=== PATIENT | male | born 1965 | race Hispanic/Latino ===

== ENCOUNTER 2017-11-19 06:38 | Observation (INO) | payer BC ==
[2017-11-16 11:09] LABS: Basophils # (Auto) 0.1 K/mm3 (0.0-0.1); Basophils % (Auto) 1.2 % (0.0-1.8); Eosinophils # (Auto) 0.2 K/mm3 (0.0-0.4); Eosinophils % (Auto) 1.9 % (0.0-4.3); Hematocrit 44.4 % (35.5-45.6); Lymphocytes # (Auto) 2.9 K/mm3 (1.2-5.4); Lymphocytes % (Auto) 28.5 % (13.4-35.0); Mean Corpuscular HGB Conc 34 % (32-34); Mean Corpuscular Hemoglobin 31 pg (28-32); Mean Corpuscular Volume 92 fl (84-94); Monocytes # (Auto) 0.6 K/mm3 (0.0-0.8); Platelet Count 329 K/mm3 (140-440); Red Blood Count 4.81 M/mm3 (3.65-5.03); Red Cell Distribution Width 14.4 % (13.2-15.2)
[2017-11-16 11:20] LABS: INR 0.88 (0.87-1.13)
[2017-11-16 11:21] LABS: Partial Thromboplastin Time 28.7 Sec. (24.2-36.6)
[2017-11-16 11:32] LABS: Alanine Aminotransferase 16 units/L (7-56); Albumin 4.2 g/dL (3.9-5); BUN/Creatinine Ratio 20; Blood Urea Nitrogen 14 mg/dL (9-20); Calcium 9.7 mg/dL (8.4-10.2); Hemolysis Index 15
--- NOTE | 2017-11-16 11:46 | Anesthesia Consultation ---
Anesthesia Consult and Med Hx Date of service: 11/16/17 - Airway Anesthetic Teeth Evaluation: Poor (some missing teeth) ROM Head & Neck: Adequate Mental/Hyoid Distance: Adequate Mallampati Class: Class II Intubation Access Assessment: Possibly Difficult - Pulmonary Exam CTA: Yes - Cardiac Exam Cardiac Exam: RRR (patient had abnormal EKG - poss infarct from [place] - pt saw certified nuclear medicine technologist this year was told looked good - no evidence of heart problems ) - Pre-Operative Health Status ASA Pre-Surgery Classification: ASA3 Proposed Anesthetic Plan: General (pt no problems with anesthesia; no pain relief from morphine - doctor did test that said no receptors for morphine) - Pulmonary Hx Smoking: Yes (1/2 PPD X 37 YRS) COPD: Yes (NO INHALERS AT PRESENT) Hx Sleep Apnea: Yes (DX SLEEP APNEA WITH CPAP USE) - Cardiovascular System Hx Hypertension: Yes (takes lisinopril; high cholesterol) - Central Nervous System Hx Neuromuscular Disorder: Yes (right rotator cuff surgery - patient will need arm down at side ) Hx Seizures: No (gout) Hx Back Pain: Yes (WITH TINGLING FEET AND LEGS) Hx Psychiatric Problems: Yes (anxiety and depression) - Other Systems Hx Cancer: No
[2017-11-19] MEDS: CLEOCIN PO SCH ×2 (02:00→18:24)
[~2017-11-19 06:38] MED LIST: ADRENALIN IV ONE; ANCEF/STERILE WATER 2 GM/20 ML IV NR; ANTIBIOTIC OINT TP ONE; BACITRACIN IR ONE; MARCAINE 0.5% INFILTRATI ONE; XYLOCAINE 1% 20 mL INFILTRATI ONE
[2017-11-19] MEDS ORDERED: NACL 0.9% 1000 ML 1,000 ML IV SCH (07:00)
[2017-11-19] MEDS ORDERED: VERSED IV NR (07:00)
[2017-11-19] MEDS ORDERED: DILAUDID IV PRN ×3 (07:59→09:00)
[2017-11-19] MEDS ORDERED: PEPCID PO NR (08:00)
[2017-11-19] MEDS ORDERED: SUBLIMAZE ONE (08:11)
[2017-11-19] MEDS ORDERED: DIPRIVAN 10 MG/ML IV ONE (08:11)
[2017-11-19] MEDS ORDERED: TORADOL ONE (08:12)
[2017-11-19] MEDS ORDERED: QUELICIN ONE (08:22)
[2017-11-19] MEDS ORDERED: XYLOCAINE MPF 2% ONE (08:23)
[2017-11-19] MEDS: DILAUDID IV PRN ×3 (08:32→22:30)
[2017-11-19] MEDS ORDERED: MARCAINE 0.5% 30 ML INFILTRATI ONE (08:48)
[2017-11-19] MEDS ORDERED: BACITRACIN ONE (08:48)
[2017-11-19] MEDS ORDERED: GELFOAM TP ONE (08:49)
[2017-11-19] MEDS ORDERED: XYLOCAINE 0.5%/ EPI 1:200,000 INFILTRATI ONE (08:49)
[2017-11-19] MEDS ORDERED: NACL 0.9% 500 ML 500 ML ONE (08:49)
[2017-11-19] MEDS ORDERED: THROMBIN (BOVINE) TP ONE (08:49)
[2017-11-19] MEDS ORDERED: NACL ONE (08:50)
[2017-11-19] MEDS ORDERED: DILAUDID ONE (08:56)
[2017-11-19] MEDS ORDERED: CLEOCIN 900 MG/50 mL 900 MG/50 ML BAG IV ONE (09:05)
--- NOTE | 2017-11-19 09:11 | Short Stay Summary ---
Short Stay Documentation Date of service: 11/19/17 Narrative H&P: Patient is a 52-year-old male with history of chronic bilateral low back pain and leg pain. He underwent anterior lumbar interbody fusion L5-S1 at L5-S1 on 12/23/2015. Postoperatively he has had ongoing low back pain and bilateral leg pain. He is undergone physical therapy, medical management and multiple interventional pain management procedures without significant improvement in his pain. He is on moderately high-dose opioid medications. He underwent a neurostimulator trial with Nevro on 09/13/2017 with greater than 75% improvement in his low back and leg pain. He is able to significantly decrease his opioid intake in addition. Given the results of that trial and recommendation of a neuropsych evaluation he is felt to be an excellent candidate for neuromodulation therapy. He presents today for permanent implantation. - History Principal diagnosis: Postlaminectomy syndrome H&P: obtained from office Past Medical History: COPD, hypertension (Anterior lumbar interbody fusion at L5 -S1, right rotator cuff repair.), other (Gout) Social history: (Unemployed due to chronic back pain and right shoulder surgery.), smoking - Allergies and Medications Current Medications: Allergies Penicillins Allergy (Verified 11/09/17 12:18) Unknown PT STATES FAMILY HX OF SEVERE REACTION TO PCN- REQUEST NOT TO HAVE IT. temazepam Allergy (Verified 11/09/17 12:18) Itching Home Medications Medication Instructions Recorded Confirmed Last Taken Type Allopurinol 300 mg PO DAILY 11/09/17 11/19/17 11/17/17 09:00 History Aspirin [Aspirin TAB] 325 mg PO QDAY 11/09/17 11/19/17 11/05/17 09:00 History AtorvaSTATin [Lipitor] 20 mg PO QHS 11/09/17 11/19/17 11/18/17 21:00 History Duloxetine HCl [Cymbalta] 60 mg PO DAILY 11/09/17 11/19/17 11/18/17 09:00 History Gabapentin [Neurontin] 200 mg PO TID 11/09/17 11/19/17 11/18/17 09:00 History Hydromorphone HCl [HYDROmorphone 12 mg PO DAILY 11/09/17 11/19/17 11/18/17 09: 00 History ER] Indomethacin [Indocin] 50 mg PO PRN PRN 11/09/17 11/16/17 Unknown History Lisinopril [Zestril] 20 mg PO DAILY 11/09/17 11/19/17 11/18/17 09:00 History Varenicline Tartrate [Chantix] 1 mg PO BID 11/09/17 11/19/17 11/18/17 09:00 History Zolpidem [Ambien] 10 mg PO QHS PRN 11/09/17 11/19/17 11/18/17 21:00 History clonazePAM [Klonopin] 1 mg PO BID 11/09/17 11/19/17 11/18/17 21:00 History oxyCODONE ER [OxyCONTIN ER TAB] 10 mg PO TID 11/09/17 11/19/17 11/18/17 09:00 History Varenicline Tartrate [Chantix] 1 mg PO BID 11/16/17 11/19/17 11/18/17 09:00 History Active Medications Cefazolin Sodium (Ancef/Sterile Water 2 Gm/20 Ml) 2 gm IV PREOP NR Stop: 11/19/17 23:59 Famotidine (Pepcid) 20 mg PO PREOP NR Stop: 11/19/17 19:00 Last Admin: 11/19/17 08:32 Dose: 20 mg Hydromorphone HCl (Dilaudid) 0.5 mg IV PRN PRN PRN Reason: pain Last Admin: 11/19/17 08:32 Dose: 0.5 mg Hydromorphone HCl (Dilaudid) 0.5 mg IV Q10MIN PRN PRN Reason: Pain , Severe (7-10) Stop: 11/19/17 17:00 Sodium Chloride (Nacl 0.9% 1000 Ml) 1,000 mls @ 125 mls/hr IV DIRECT MARLA Stop: 11/19/17 23:59 Last Admin: 11/19/17 08:05 Dose: 125 mls/hr Clindamycin HCl (Cleocin 900 Mg/50 Ml) 900 mg in 50 mls @ 100 mls/hr IV Q8H MARLA PRN Reason: Protocol Midazolam HCl (Versed) 2 mg IV PREOP NR Stop: 11/19/17 23:59 Last Admin: 11/19/17 08:59 Dose: 2 mg - Physical exam General appearance: no acute distress Integumentary: no rash HEENT: Atraumatic, PERRLA, EOMI, Mucous membr. moist/pink Lungs: Clear to auscultation Breasts: deferred Heart: Regular rate, No murmurs Gastrointestinal: normal Male Genitourinary: deferred Rectal Exam: deferred Extremities: no ischemia, abnormal (Right shoulder and shoulder immobilizer secondary to recent rotator cuff repair.) Neurological: Normal gait, Normal speech, Strength at 5/5 X4 ext, Cranial nerves 3-12 NL - Brief post op/procedure progress note Date of procedure: 11/19/17 Pre-op diagnosis: Post Laminectomy Syndrome Post-op diagnosis: same Procedure: Permanent neurostimulator implantation with a dual epidural leads- Thoracic Spine Anesthesia: GETA Findings: Left epidural lead cephalad contact position at superior endplate of T8. Right epidural lead cephalad contact position at superior endplate of T9 Surgeon: ELOISE AGUIRRE Estimated blood loss: minimal Pathology: none Condition: stable - Disposition Condition at discharge: Good Disposition: DC-01 TO HOME OR SELFCARE Short Stay Discharge Plan Follow up with: MINDY ALVAREZ [Other] - 7 Days
[2017-11-19] MEDS ORDERED: ADRENALIN ONE (09:22)
[2017-11-19] MEDS ORDERED: XYLOCAINE 1% 20 mL ONE (09:22)
[2017-11-19] MEDS ORDERED: PROAIR IH ONE (09:29)
[2017-11-19] MEDS ORDERED: CLEOCIN 900 MG/50 mL 900 MG/50 ML BAG IV SCH (09:30)
[2017-11-19] MEDS ORDERED: ZEMURON IV ONE (09:48)
[2017-11-19] MEDS ORDERED: NEO SYNEPHRINE ONE (09:48)
[2017-11-19] MEDS ORDERED: NEO SYNEPHRINE/NS Syringe(OR USE) IV ONE (09:48)
[2017-11-19] MEDS ORDERED: ROBINUL ONE ×3 (09:50→11:14)
[2017-11-19] MEDS ORDERED: ZOFRAN ONE (10:17)
[2017-11-19] MEDS ORDERED: DECADRON ONE (10:17)
[2017-11-19] MEDS ORDERED: NACL 0.9% 1000 ML 1,000 ML ONE (10:21)
[2017-11-19] MEDS ORDERED: ANTIBIOTIC OINT TP ONE (11:04)
[2017-11-19] MEDS ORDERED: NEOSTIGMINE ONE (11:13)
--- NOTE | 2017-11-19 11:44 | XRay Report ---
Thoracic spine, 2 views History: Back pain, finish sander for dorsal spinal stimulator placement Findings: PA and lateral fluoroscopic views of the thoracolumbar spine were obtained during dorsal spinal stimulator placement. Minimal spondylosis is noted. No evidence for fracture, malalignment or bone lesion. A neurostimulator device terminates near the level of T8-9. Impression: Mild spondylosis. Stimulator placement as described.
--- NOTE | 2017-11-19 13:23 | Operative Report ---
Operative Report Operative Report: Preoperative Diagnoses: 1. Chronic axial low back pain. 2. Bilateral Lumbar radiculopathy. 3. Degenerative disc disease the lumbar spine. 4. Postlaminectomy syndrome. Postoperative diagnosis: 1. Same. Procedure: 1. Percutaneous insertion of dual octapolar epidural leads -thoracic spine. 2. Implantation of pulse generator/anesthesiologist and critical care. Surgeon: Syed Stuart Anesthesia: General endotracheal. Estimated blood loss: 15 mL Complications: None. Indication: The patient is a 52-year-old male with chronic low back and bilateral leg pain.. History of anterior lumbar interbody fusion at L5-S1 on . He has undergone extensive conservative management and interventional pain management. including chronic opioid therapy. He was evaluated by orthopedic spine surgery and was determined to no longer be a surgical candidate.. He underwent neurostimulator trial in August 2017 with greater than 75% pain relief and reduction in opioid intake. Based on the success of the trial, sandra reinoso was felt to be an excellent candidate for neurostimulator implantation. Patient underwent psychological evaluation and no contraindication was identified. He now presents for permanent implantation. Procedure: Upon informed consent, the patient was brought to the operative suite and general endotracheal anesthesia was induced. The patient was then carefully turned onto the operative table in the prone position. All pressure points were meticulously padded. He received 100 mg of clindamycin intravenously for antibiotic prophylaxis. The back was sterilely prepped and draped in routine fashion. Attention was initially turned to the thoracolumbar junction. Using a 14-gauge Tuohy needle, the needle was advanced to the interlaminar space on the left at T12-L1. The epidural space was entered using [id number] technique. Aspiration was negative for blood and CSF. Guidewire was easily passed into the dorsal epidural space. This was followed by placement of a 70 cm octapolar lead ([id number], Lot [id number]) which was guided using fluoroscopic assistance into the lower thoracic space to the left of midline with the superior contact overlying the T7-8 disc space. Using parallel technique, the second epidural lead was advanced into the posterior epidural space at T12-L1 and a second 70 cm octapolar lead ([id number] [id number], Lot [id number]), and advanced to the T8-9 disc space, to the right of midline. Once placement was deemed to be satisfactory in both AP and lateral projections , a 5 cm paramedian skin incision was made with a #15 blade after installation of 0.5% bupivacaine. Using sharp and blunt dissection was electrocautery, the dorsal lumbar fascia was identified. The fat tissue connective tissue was stripped off the dorsal fascia. The Tuohy needles were removed and Titanium anchors were used to anchor the leads to the dorsal epidural fascia with 2-0 silk sutures. The leads were locked into the anchors and the leads appear to be secure. Lead position was again confirmed with fluoroscopy. The incision was irrigated with bacitracin-containing solution. Second 5 cm incision was made a #15 blade over the left flank, superior to the iliac crest. Using sharp and blunt dissection, a pocket was created within the subcutaneous fat. Hemostasis was achieved with electrocautery. The pocket was irrigated in no active bleeding was identified. The tunneling device was then inserted and the leads were passed from the paramedian incision to the pocket and connected to the IPG ([id number]). Impedance was found to be satisfactory. The pulse generator was then placed into the pocket satisfactory fit. The wound was again irrigated with antibiotic containing solution. Both incisions were closed in 3 layers with deep 2-0 Vicryl interrupted sutures, subcutaneous 3-0 Vicryl interrupted sutures and skin edges were approximated with stainless steel chantelle. Sterile dressings were applied. Patient was then turned onto the gurney in the supine position and extubated. He was taken to the recovery room where she was noted to be in stable cardiopulmonary neurologic condition. Disposition: Patient was discharged to home in good condition. Follow up with home health care. Prescription was given for clindamycin 300 mg 3 times a day for 4 days. Follow-up: Return to clinic in one week for follow-up evaluation.
--- NOTE | 2017-11-19 13:54 | Post Anesthesia Evaluation ---
- Post Anesthesia Evaluation Patient Participated: Yes Airway Patent: Yes Stable Respiratory Function: Yes Nausea/Vomiting: No Temp > 96.8F: Yes Pain Manageable: Yes Adequeate Hydration: Yes Anesthesia Complications: No Block Receding Appropriately: Not Applicable Patient on Ventilator: No
--- NOTE | 2017-11-19 21:08 | History and Physical Report ---
History of Present Illness Date of examination: 11/19/17 Date of admission: 11/19/17 15:45 Chief complaint: SOB Postop History of present illness: [place]: Patient acutely SOB post procedure and Hypoxic -hence admission from PACU. Patient had Neuro stimulator placed today.Postop was hypoxic and SOB. From the surgeon-Dr Madrigal "Patient is a 52-year-old male with history of chronic bilateral low back pain and leg pain. He underwent anterior lumbar interbody fusion L5-S1 at L5-S1 on 12/23/2015. Postoperatively he has had ongoing low back pain and bilateral leg pain. He is undergone physical therapy, medical management and multiple interventional pain management procedures without significant improvement in his pain. He is on moderately high-dose opioid medications. He underwent a neurostimulator trial with Zbigniewro on 09/13/2017 with greater than 75% improvement in his low back and leg pain. He is able to significantly decrease his opioid intake in addition. Given the results of that trial and recommendation of a neuropsych evaluation he is felt to be an excellent candidate for neuromodulation therapy. He presents today for permanent implantation." Past History Past Medical History: COPD, hypertension (Anterior lumbar interbody fusion at L5 -S1, right rotator cuff repair.), other (Gout) Past Surgical History: Other (Neuro stimulator placed today Rt Shoulder surgery) Social history: (Unemployed due to chronic back pain and right shoulder surgery.), smoking Medications and Allergies Allergies Allergy/AdvReac Type Severity Reaction Status Date / Time Penicillins Allergy Unknown Verified 11/09/17 12:18 temazepam Allergy Itching Verified 11/09/17 12:18 Home Medications Medication Instructions Recorded Confirmed Last Taken Type Allopurinol 300 mg PO DAILY 11/09/17 11/19/17 11/17/17 09:00 History Aspirin [Aspirin TAB] 325 mg PO QDAY 11/09/17 11/19/17 11/05/17 09:00 History AtorvaSTATin [Lipitor] 20 mg PO QHS 11/09/17 11/19/17 11/18/17 21:00 History Duloxetine HCl [Cymbalta] 60 mg PO DAILY 11/09/17 11/19/17 11/18/17 09:00 History Gabapentin [Neurontin] 200 mg PO TID 11/09/17 11/19/17 11/18/17 09:00 History Hydromorphone HCl [HYDROmorphone mg PO DAILY 11/09/17 11/19/17 11/18/17 09: 00 History ER] Lisinopril [Zestril] 20 mg PO DAILY 11/09/17 11/19/17 11/18/17 09:00 History Varenicline Tartrate [Chantix] 1 mg PO BID 11/09/17 11/19/17 11/18/17 09:00 History Zolpidem [Ambien] 10 mg PO QHS PRN 11/09/17 11/19/17 11/18/17 21:00 History clonazePAM [Klonopin] 1 mg PO BID 11/09/17 11/19/17 11/18/17 21:00 History oxyCODONE ER [OxyCONTIN ER TAB] 10 mg PO TID 11/09/17 11/19/17 11/18/17 09:00 History Varenicline Tartrate [Chantix] 1 mg PO BID 11/16/17 11/19/17 11/18/17 09:00 History Famotidine [Pepcid] 20 mg PO PREOP tablet 11/19/17 Unknown Rx Active Meds: Active Medications Clindamycin HCl (Cleocin) 300 mg PO Q8HR MARLA Last Admin: 11/19/17 18:24 Dose: 300 mg Hydromorphone HCl (Dilaudid) 0.5 mg IV PRN PRN PRN Reason: pain Last Admin: 11/19/17 18:16 Dose: 0.5 mg Sodium Chloride (Nacl 0.9% 1000 Ml) 1,000 mls @ 125 mls/hr IV DIRECT MARLA Stop: 11/19/17 23:59 Last Admin: 11/19/17 08:05 Dose: 125 mls/hr Midazolam HCl (Versed) 2 mg IV PREOP NR Stop: 11/19/17 23:59 Last Admin: 11/19/17 08:59 Dose: 2 mg Review of Systems All systems: negative Respiratory: cough with sputum, shortness of breath, congestion, wheezing Exam - Constitutional Vitals: Temp Pulse Resp BP Pulse Ox 97.8 F 85 19 139/78 98 11/19/17 19:33 11/19/17 19:33 11/19/17 19:33 11/19/17 19:33 11/19/17 19:33 General appearance: Present: no acute distress, mild distress, well-nourished - EENT Eyes: Present: PERRL ENT: hearing intact, clear oral mucosa - Neck Neck: Present: supple, normal ROM - Respiratory Respiratory effort: normal Respiratory: bilateral: CTA, wheezing - Cardiovascular Heart rate: 80 Rhythm: regular Heart Sounds: Present: S1 & S2. Absent: rub, click - Extremities Extremities: pulses symmetrical, No edema Peripheral Pulses: within normal limits - Abdominal General gastrointestinal: Present: soft, non-tender, non-distended, normal bowel sounds Male genitourinary: Present: normal - Rectal Rectal Exam: deferred - Integumentary Integumentary: Present: clear, warm, dry - Musculoskeletal Musculoskeletal: gait normal, strength equal bilaterally - Psychiatric Psychiatric: appropriate mood/affect, intact judgment & insight - Neurologic Neurologic: CNII-XII intact, moves all extremities - Allied Health Allied health notes reviewed: nursing, case management Results - Labs CBC & Chem 7: 11/20/17 06:16 11/16/17 10:45 Labs: Laboratory Last Values WBC 10.2 K/mm3 (4.5-11.0) 11/16/17 10:45 RBC 4.81 M/mm3 (3.65-5.03) 11/16/17 10:45 Hgb 15.0 gm/dl (11.8-15.2) 11/16/17 10:45 Hct 44.4 % (35.5-45.6) 11/16/17 10:45 MCV 92 fl (84-94) 11/16/17 10:45 MCH 31 pg (28-32) 11/16/17 10:45 MCHC 34 % (32-34) 11/16/17 10:45 RDW 14.4 % (13.2-15.2) 11/16/17 10:45 Plt Count 329 K/mm3 (140-440) 11/16/17 10:45 Lymph % (Auto) 28.5 % (13.4-35.0) 11/16/17 10:45 Atkinson % (Auto) 6.0 % (0.0-7.3) 11/16/17 10:45 Eos % (Auto) 1.9 % (0.0-4.3) 11/16/17 10:45 Baso % (Auto) 1.2 % (0.0-1.8) 11/16/17 10:45 Lymph # 2.9 K/mm3 (1.2-5.4) 11/16/17 10:45 Atkinson # 0.6 K/mm3 (0.0-0.8) 11/16/17 10:45 Eos # 0.2 K/mm3 (0.0-0.4) 11/16/17 10:45 Baso # 0.1 K/mm3 (0.0-0.1) 11/16/17 10:45 Seg Neutrophils % 62.4 % (40.0-70.0) 11/16/17 10:45 Seg Neutrophils # 6.4 K/mm3 (1.8-7.7) 11/16/17 10:45 PT 12.4 Sec. (12.2-14.9) 11/16/17 10:45 INR 0.88 (0.87-1.13) 11/16/17 10:45 APTT 28.7 Sec. (24.2-36.6) 11/16/17 10:45 Sodium 141 mmol/L (137-145) 11/16/17 10:45 Potassium 3.9 mmol/L (3.6-5.0) 11/16/17 10:45 Chloride 100.9 mmol/L (98-107) 11/16/17 10:45 Carbon Dioxide 24 mmol/L (22-30) 11/16/17 10:45 Anion Gap 20 mmol/L 11/16/17 10:45 BUN 14 mg/dL (9-20) 11/16/17 10:45 Creatinine 0.7 mg/dL (0.8-1.5) L 11/16/17 10:45 Estimated GFR > 60 ml/min 11/16/17 10:45 BUN/Creatinine Ratio 20 % 11/16/17 10:45 Glucose 155 mg/dL (75-100) H 11/16/17 10:45 Calcium 9.7 mg/dL (8.4-10.2) 11/16/17 10:45 Total Bilirubin 0.40 mg/dL (0.1-1.2) 11/16/17 10:45 AST 13 units/L (5-40) 11/16/17 10:45 ALT 16 units/L (7-56) 11/16/17 10:45 Alkaline Phosphatase 118 units/L (35-129) 11/16/17 10:45 Total Protein 6.9 g/dL (6.3-8.2) 11/16/17 10:45 Albumin 4.2 g/dL (3.9-5) 11/16/17 10:45 Albumin/Globulin Ratio 1.6 % 11/16/17 10:45 Assessment and Plan Advance Directives: Yes (FC) VTE prophylaxis?: Chemical Plan of care discussed with patient/family: Yes - Patient Problems (1) Acute respiratory failure with hypoxia Current Visit: Yes Status: Acute Plan to address problem: IV abx duonebs and solu medrol (2) COPD with acute exacerbation Current Visit: Yes Status: Acute Plan to address problem: IV Levaquin IV solumedrol and Duonebs (3) Acute respiratory failure Current Visit: Yes Status: Acute (4) HTN (hypertension) Current Visit: Yes Status: Chronic Qualifiers: Hypertension type: essential hypertension Qualified Code(s): I10 - Essential (primary) hypertension Plan to address problem: Cont antihypertensives (5) Acute bilateral low back pain Current Visit: Yes Status: Acute Qualifiers: Sciatica presence: with sciatica Plan to address problem: Patient had Neurostimulator placed Morphine PRN (6) DVT prophylaxis Current Visit: Yes Status: Acute Plan to address problem: on lovenox
[2017-11-19] MEDS ORDERED: AMBIEN PO PRN (21:09)
[2017-11-19] MEDS ORDERED: LEVAQUIN 750MG/150ML 750 MG/150 ML BAG IV SCH (22:00)
[2017-11-19] MEDS ORDERED: NON-FORMULARY (Clonazepam [Klonopin] 1 MG) PO SCH (22:00)
[2017-11-19] MEDS: CYMBALTA PO SCH (22:59)
[2017-11-19] MEDS: ZESTRIL PO SCH (22:59)
[2017-11-20] MEDS: DILAUDID IV PRN ×2 (01:48→06:36)
[2017-11-20] MEDS: DUONEB *Not for PRN Use IH SCH ×4 (04:30→14:27)
[2017-11-20] MEDS: CLEOCIN PO SCH (06:31)
[2017-11-20 06:35] LABS: Basophils % (Auto) 0.3 % (0.0-1.8); Hematocrit 44.1 % (35.5-45.6); Hemoglobin 14.8 gm/dl (11.8-15.2); Lymphocytes # (Auto) 1.2 K/mm3 (1.2-5.4); Mean Corpuscular HGB Conc 34 % (32-34); Mean Corpuscular Hemoglobin 31 pg (28-32); Mean Corpuscular Volume 93 fl (84-94); Monocytes # (Auto) 0.3 K/mm3 (0.0-0.8); Monocytes % (Auto) 1.8 % (0.0-7.3); Platelet Count 310 K/mm3 (140-440); Red Blood Count 4.75 M/mm3 (3.65-5.03); Red Cell Distribution Width 14.8 % (13.2-15.2)
[2017-11-20 07:23] LABS: BUN/Creatinine Ratio 23; Blood Urea Nitrogen 14 mg/dL (9-20); Calcium 9.3 mg/dL (8.4-10.2); Hemolysis Index 8
[2017-11-20] MEDS ORDERED: NEURONTIN PO SCH (08:00)
[2017-11-20] MEDS ORDERED: OxyCONTIN PO SCH (08:00)
--- NOTE | 2017-11-20 09:20 | Discharge Summary ---
Providers - Providers Date of Admission: 11/19/17 15:45 Attending physician: MAAME BRADEN MD 11/19/17 16:15 Consult to Physician [CONS] Routine Consulting Provider: ELOISE AGUIRRE Reason For Exam: INTRACTABLE PAIN, SPINAL CORD STIMULATOR INSERTION Place consult to:: DR. Addison AGUIRRE Phone number called:: [phone] Was contact made?: Yes If yes, spoke with:: DR. AGUIRRE Time called:: 15:37 Primary care physician: ISABELLE CASTRO Hospitalization Reason for admission: hypoxemia Condition: Stable Hospital course: "Patient is a 52-year-old male with history of chronic bilateral low back pain and leg pain. He underwent anterior lumbar interbody fusion L5-S1 at L5-S1 on 12/23/2015. Postoperatively he has had ongoing low back pain and bilateral leg pain. He is undergone physical therapy, medical management and multiple interventional pain management procedures without significant improvement in his pain. He is on moderately high-dose opioid medications. He underwent a neurostimulator trial with Nevro on 09/13/2017 with greater than 75% improvement in his low back and leg pain. He is able to significantly decrease his opioid intake in addition. Given the results of that trial and recommendation of a neuropsych evaluation he is felt to be an excellent candidate for neuromodulation therapy. He presents today for permanent implantation. Patient was monitored overnight and received IV antibiotic is doing also Solu-Medrol with significant improvement. He is clinically stable at this point with no further requirement of oxygen stable for discharge. Continue outpatient follow-up as previously arranged with anesthesia (1) Acute respiratory failure with hypoxia (2) COPD with acute exacerbation (3) Acute respiratory failure (4) HTN (hypertension) (5) Acute bilateral low back pain Disposition: DC/[place]-06 HOME UNDER HOME [facility] Time spent for discharge: 35 mins Core Measure Documentation - Palliative Care Palliative Care/ Comfort Measures: Not Applicable - Core Measures Any of the following diagnoses?: none - VTE Discharge Requirements Deep Vein Thrombosis/Pulmonary Embolism Present on Admission: No Exam - Physical Exam Narrative exam: VITAL SIGNS: Reviewed. GENERAL: The patient appeared well nourished and normally developed. Vital signs as documented. HEAD: No signs of head trauma. EYES: Pupils are equal. Extraocular motions intact. EARS: Hearing grossly intact. MOUTH: Oropharynx is normal. NECK: No adenopathy, no JVD. CHEST: Chest with clear breath sounds bilaterally. No wheezes, rales, or rhonchi. CARDIAC: Regular rate and rhythm. S1 and S2, without murmurs, gallops, or rubs. VASCULAR: No Edema. Peripheral pulses normal and equal in all extremities. ABDOMEN: Soft, without detectable tenderness. No sign of distention. No rebound or guarding, and no masses palpated. Bowel Sounds normal. MUSCULOSKELETAL: Good range of motion of all major joints. Extremities without clubbing, cyanosis or edema. NEUROLOGIC EXAM: Alert and oriented x 3. No focal sensory or strength deficits. Speech normal. Follows commands. PSYCHIATRIC: Mood normal. SKIN: Dressing over the surgical site left upper extremity sling.. - Constitutional Vitals: Temp Pulse Resp BP Pulse Ox 97.8 F 84 18 127/70 91 11/20/17 07:02 11/20/17 07:03 11/20/17 07:02 11/20/17 07:02 11/20/17 07:03 Plan Activity: advance as tolerated, fall precautions Diet: low cholesterol Special Instructions: physical therapy, occupational therapy Follow up with: MINDY ALVAREZ [Other] - 7 Days ELOISE AGUIRRE MD [Staff Physician] - 7 Days Forms: Outpatient Surgery DC Inst. Prescriptions: Clindamycin [Clindamycin CAP] 300 mg PO Q8HR 7 Days capsule Prednisone [predniSONE 5 mg (6-Day Pack, 21 Tabs)] 5 mg PO .TAPER #1 tab.mei
[2017-11-20] MEDS ORDERED: ZYLOPRIM PO SCH (10:00)
[2017-11-20] MEDS ORDERED: ASPIRIN PO SCH (10:00)
[2017-11-20] MEDS ORDERED: HYDROMORPHONE HCL 12 MG PO SCH (10:00)
[2017-11-20 12:00] VITALS: BP 127/71
[2017-11-20] MEDS: CYMBALTA PO SCH (12:37)
[2017-11-20] MEDS: ZESTRIL PO SCH (12:41)
== END 2017-11-20 14:20 | disposition home health service (06) ==
LOC: OR 06:38 → 3A 15:45 → 3B-SURG 17:10
PROVIDERS: ADMIT Internal Medicine; ATTEND Internal Medicine
DX: M51.16 Intervertebral disc disorders with radiculopathy, lumbar region (principal); M96.1 Postlaminectomy syndrome, not elsewhere classified; G89.29 Other chronic pain; M54.5 Low back pain; I10 Essential (primary) hypertension; F17.210 Nicotine dependence, cigarettes, uncomplicated; J44.1 Chronic obstructive pulmonary disease with (acute) exacerbation; J96.01 Acute respiratory failure with hypoxia; Z98.890 Other specified postprocedural states
CPT/HCPCS: 36415; 63650; 63685; 72070; 80048; 80053; 85025; 85610; 85730; 94640; 94660; 96365; 96375; 96376; A9270; C1767; C1897; G0378; J0171; J1100; J1170; J1956; J2250; J2370; J2405; J2704; J2710; J2920; J3010; J7030; J7040; A4649; J0330; J1885